=== PATIENT | male | born 1975 | race Caucasian/White ===

== ENCOUNTER 2018-03-05 23:12 | Emergency (ER) | payer OTHER ==
--- NOTE | 2018-03-05 23:24 | PDOC ---
History of Present Illness - General Chief Complaint: Bone Injury Stated Complaint: HAND INJURY Time Seen by Provider: 03/05/18 23:23 History Source: Patient - History of Present Illness Initial Comments: 03/06/18 06:42 42 year old male c/o right hand pain after punching a wall prior to arrival. patient with right 4th and 5th metacarpal tenderness and deformity. tetanus uptodate. Past History - Past Medical History Allergies/Adverse Reactions: Allergies Allergy/AdvReac Type Severity Reaction Status Date / Time Penicillins Allergy Verified 03/05/18 23:19 Home Medications: Ambulatory Orders Aspirin Coated [Ecotrin -] 81 mg PO DAILY #30 tablet.ec 09/25/16 Insulin (Levemir) [Levemir Vial] 20 units SQ BIDI 30 Days ml 09/25/16 Insulin Aspart [Novolog] 6 unit SQ AC #1 ml 09/25/16 Nitroglycerin Sublingual [Nitrostat -] 0.4 mg SL Q5M PRN #0 tab 09/25/16 Ramipril [Altace] 10 mg PO DAILY capsule 09/25/16 Clindamycin [Cleocin -] 300 mg PO TID #21 capsule 03/06/18 Cardiac Disorders: Yes (stent) COPD: No Diabetes: Yes Disorders: Yes (GERD) HTN: Yes - Surgical History Cardiac Surgery: Yes (stent) - Immunization History Immunization Up to Date: Yes - Suicide/Smoking/Psychosocial Hx Smoking Status: Yes Smoking History: Unknown if ever smoked Number of Cigarettes Smoked Daily: 20 Cigars Per Day: 0 'Breaking Loose' booklet given: 09/25/16 Hx Alcohol Use: Yes (1 bottle of vodka per day) Drug/Substance Use Hx: No Review of Systems - Review of Systems Able to Perform ROS?: Yes Is the patient limited Turkmen proficient: No Constitutional: No: Symptoms Reported, See HPI, Chills, Diaphoresis, Fever, Loss of Appetite, Malaise, Night Sweats, Weakness, Weight Stable, Unintentional Wgt. Loss, Unexplained wgt Loss, Other Musculoskeletal: Yes: Other (right hand pain) *Physical Exam - Vital Signs Last Vital Signs Temp Pulse Resp BP Pulse Ox 97.9 F 100 H 18 140/86 99 03/05/18 23:19 03/05/18 23:19 03/05/18 23:19 03/05/18 23:19 03/05/18 23:19 - Physical Exam General Appearance: Yes: Appropriately Dressed Extremity: positive: Normal Capillary Refill, Normal Inspection, Other (+ deformity to right 4,5 metacarpal area, limited ROM , abrasions to hand) ED Treatment Course - RADIOLOGY Radiology Studies Ordered: Category Date Time Status HAND- RIGHT [RAD] Stat Radiology 03/05/18 23:23 Ordered *DC/Admit/Observation/Transfer Diagnosis at time of Disposition: Boxers fracture Qualifiers: Encounter type: initial encounter Fracture type: closed Qualified Code(s): S62.339A - Displaced fracture of neck of unspecified metacarpal bone, initial encounter for closed fracture - Discharge Dispostion Disposition: HOME Condition at time of disposition: Stable - Prescriptions Prescriptions: Clindamycin [Cleocin -] 300 mg PO TID #21 capsule - Referrals Referrals: Jay Byers MD [Primary Care Provider] - Fam Poe MD [Staff Physician] - - Patient Instructions Printed Discharge Instructions: How to Use a Sling Additional Instructions: rest , ICE elevate, keep arm in sling take cephalexin as ordered. follow up with your hand doctor as soon as possible. - Post Discharge Activity Forms/Work/School Notes: Back to Work
[2018-03-05 23:25] VITALS: BP 140/86; PULSE 100; TEMP 97.9; BMI 26.6
--- NOTE | 2018-03-05 23:47 | PDOC ---
*Physical Exam - Vital Signs Last Vital Signs Temp Pulse Resp BP Pulse Ox 97.9 F 100 H 18 140/86 99 03/05/18 23:19 03/05/18 23:19 03/05/18 23:19 03/05/18 23:19 03/05/18 23:19 - Physical Exam Comments: 03/05/18 23:46 R swollen hand Medical Decision Making - Medical Decision Making 03/05/18 23:46 xray shows R 5th metacarpal fx will need splinting 03/06/18 01:02 tetanus UTD small abrasion to hand, will add abx punched a wall splinted will need ortho/hand follow up denies need pain med rx stable for d/c to home *DC/Admit/Observation/Transfer Diagnosis at time of Disposition: Boxers fracture Qualifiers: Encounter type: initial encounter Fracture type: closed Qualified Code(s): S62.339A - Displaced fracture of neck of unspecified metacarpal bone, initial encounter for closed fracture - Discharge Dispostion Disposition: HOME Condition at time of disposition: Stable Admit: No - Prescriptions Prescriptions: Clindamycin [Cleocin -] 300 mg PO TID #21 capsule - Referrals Referrals: Fam Poe MD [Staff Physician] - Jay Byers MD [Primary Care Provider] - - Patient Instructions Printed Discharge Instructions: How to Use a Sling Additional Instructions: rest , ICE elevate, keep arm in sling take cephalexin as ordered. follow up with your hand doctor as soon as possible. - Post Discharge Activity Forms/Work/School Notes: Back to Work
== END 2018-03-06 00:45 | disposition home or self-care (01) ==
LOC: JER 23:12
DX: S62.339A Displaced fracture of neck of unspecified metacarpal bone, initial encounter for closed fracture (principal); W22.09XA Striking against other stationary object, initial encounter; Y93.89 Activity, other specified; Y92.9 Unspecified place or not applicable; F17.210 Nicotine dependence, cigarettes, uncomplicated
CPT/HCPCS: 73130-TC-RT-FY; 99283-25

== ENCOUNTER 2018-05-17 00:49 | Emergency (ER) | payer OTHER ==
[2018-05-17 02:10] VITALS: BP 136/96; PULSE 78; TEMP 98.4; BMI 25.7
--- NOTE | 2018-05-17 02:23 | PDOC ---
*Physical Exam - Vital Signs Last Vital Signs Temp Pulse Resp BP Pulse Ox 98.4 F 78 19 136/96 98 05/17/18 01:00 05/17/18 01:00 05/17/18 01:00 05/17/18 01:00 05/17/18 01:00 Medical Decision Making - Medical Decision Making 05/17/18 02:23 Pt seen by Midlevel Provider under my direct supervision Ancillary studies reviewed I agree with plan as outlined by Midlevel Provider 05/17/18 22:22 *DC/Admit/Observation/Transfer Diagnosis at time of Disposition: Laceration of wrist without complication, Contusion of hand, right - Discharge Dispostion Disposition: HOME Condition at time of disposition: Fair - Referrals Referrals: Jeffery Dang MD [Staff Physician] - - Patient Instructions Additional Instructions: Rest, no strenuous activity or exercise until glue is dissolved or lifted Wash from the neck down only and avoid hot steamy environment until Dermabond is gone No bathing or swimming until Dermabond is dissolved Avoid peeling away as wound will open Dermabond should be resolved within 3-7 days May use Tylenol or Motrin for pain relief apply ice to hand to decrease swelling and control pain Followup with your doctor as needed Return to emergency department for worsening swelling, pain, redness or signs of cellulitis If the wound reopens, may not be reclosed as will be a dirty wound and will need to heal by secondary intention - Post Discharge Activity Forms/Work/School Notes: Back to Work
[2018-05-17] MEDS ORDERED: DIPHTH,PERTUSS(ACELL),TET 0.5 ML DISP.SYRIN IM ONE (02:25)
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
== END 2018-05-17 04:12 | disposition home or self-care (01) ==
LOC: JER 00:49
PROC: 0HQDXZZ Repair Right Lower Arm Skin, External Approach (ICD-10-PCS; principal; 2018-05-17)
PROC: 3E0234Z Introduction of Serum, Toxoid and Vaccine into Muscle, Percutaneous Approach (ICD-10-PCS; 2018-05-17)
DX: S61.511A Laceration without foreign body of right wrist, initial encounter (principal); S60.211A Contusion of right wrist, initial encounter; W25.XXXA Contact with sharp glass, initial encounter; Y93.89 Activity, other specified; Y92.038 Other place in apartment as the place of occurrence of the external cause; Y99.8 Other external cause status; I10 Essential (primary) hypertension; Z98.61 Coronary angioplasty status; E11.9 Type 2 diabetes mellitus without complications; Z79.4 Long term (current) use of insulin; K21.9 Gastro-esophageal reflux disease without esophagitis; F17.210 Nicotine dependence, cigarettes, uncomplicated
CPT/HCPCS: 73130-TC-RT-FY; 90715; 99281-25

== ENCOUNTER 2018-07-10 00:03 | Emergency (ER) | payer OTHER ==
[2018-07-10 00:10] VITALS: BP 114/76; PULSE 94; TEMP 98; BMI 25.0
--- NOTE | 2018-07-10 00:24 | PDOC ---
History of Present Illness - General Chief Complaint: Pain, Acute Stated Complaint: HAND PAIN Time Seen by Provider: 07/10/18 00:06 - History of Present Illness Initial Comments: 07/10/18 00:38 This 43-year-old man with a history of CAD/HTN/DM and past history of boxer's fracture of the right hand presents with injury to the right hand: Patient states that he punched a wall approximately 2 hours prior to presentation. Subsequent to that, he has had pain and swelling in the right hand. No other injuries sustained. Patient had ORIF of 4th and 5th metacarpal fracture of the right hand in 2014 [facility]. PMH: HTN CAD IDDM Medications as noted below Past History - Past Medical History Allergies/Adverse Reactions: Allergies Allergy/AdvReac Type Severity Reaction Status Date / Time Penicillins Allergy Verified 05/17/18 02:10 Home Medications: Ambulatory Orders Aspirin Coated [Ecotrin -] 81 mg PO DAILY #30 tablet.ec 09/25/16 Insulin (Levemir) [Levemir Vial] 20 units SQ BIDI 30 Days ml 09/25/16 Insulin Aspart [Novolog] 6 unit SQ AC #1 ml 09/25/16 Nitroglycerin Sublingual [Nitrostat -] 0.4 mg SL Q5M PRN #0 tab 09/25/16 Ramipril [Altace] 10 mg PO DAILY capsule 09/25/16 Clindamycin [Cleocin -] 300 mg PO TID #21 capsule 03/06/18 Cardiac Disorders: Yes COPD: No DVT: No Diabetes: Yes Disorders: Yes (GERD) HTN: Yes - Surgical History Appendectomy: No Cardiac Surgery: Yes (CATHERIZATION) - Immunization History Immunization Up to Date: Yes - Suicide/Smoking/Psychosocial Hx Smoking Status: Yes Smoking History: Current every day smoker Have you smoked in the past 12 months: Yes Number of Cigarettes Smoked Daily: 20 Cigars Per Day: 0 Information on smoking cessation initiated: Yes 'Breaking Loose' booklet given: 09/25/16 Hx Alcohol Use: Yes Drug/Substance Use Hx: No Substance Use Type: Alcohol Review of Systems - Review of Systems Able to Perform ROS?: Yes Comments:: 12 point review of systems is negative except for what is noted in the history of present illness *Physical Exam - Vital Signs Last Vital Signs Temp Pulse Resp BP Pulse Ox 98 F 94 H 20 114/76 98 07/10/18 00:05 07/10/18 00:05 07/10/18 00:05 07/10/18 00:05 07/10/18 00:05 - Physical Exam Comments: GENERAL: Adult male, AOB, in mild distress secondary to right hand pain HEAD: Normal with no signs of trauma. EYES: PERRLA, EOMI, sclera anicteric, conjunctiva clear. EXTREMITIES: Right upper extremity-moderate edema of right hand with point tenderness over fourth/fifth metacarpal No ecchymosis/ no open wound Remainder of the extremity exam is normal NEUROLOGICAL: Cranial nerves II through XII grossly intact. Normal speech. No focal neurological deficits. MUSCULOSKELETAL: Back non-tender to palpation, no CVA tenderness SKIN: Warm, Dry, normal turgor, no rashes or lesions noted. Progress Note - Progress Note Progress Note: Right hand x-ray performed and interpreted by me: Evidence of old fractures at base of fourth and fifth metacarpal bones. No new fracture/dislocation seen. X -ray image similar to one obtained here on 05/17/18; this was interpreted as negative for new fracture. Melvin wrap applied to right hand. Patient will use Melvin wrap during the day for the next several days. He will also elevate and ice the area as much as possible for the next 48 hours. He has persistent pain/swelling, he should follow-up with Drs. Dang/Heather *DC/Admit/Observation/Transfer Diagnosis at time of Disposition: Contusion of hand, right Qualifiers: Encounter type: initial encounter Qualified Code(s): S60.221A - Contusion of right hand, initial encounter - Discharge Dispostion Disposition: HOME Condition at time of disposition: Stable - Referrals Referrals: Jeffery Dang MD [Staff Physician] - - Patient Instructions Printed Discharge Instructions: Contusion Additional Instructions: elevate/ice to right hand as much as possible over the next 48 hours Melvin wrap to right hand during the day for the next 3 days Follow-up with Dr. Dang/Dr. Romero if you have persistent pain/swelling - Post Discharge Activity
== END 2018-07-10 02:25 | disposition home or self-care (01) ==
LOC: FER 00:03
DX: S60.221A Contusion of right hand, initial encounter (principal); W22.01XA Walked into wall, initial encounter; Y93.89 Activity, other specified; Y92.9 Unspecified place or not applicable; F17.210 Nicotine dependence, cigarettes, uncomplicated; E11.9 Type 2 diabetes mellitus without complications; K21.9 Gastro-esophageal reflux disease without esophagitis; I51.9 Heart disease, unspecified; Z79.4 Long term (current) use of insulin
CPT/HCPCS: 73130-TC-RT-FY; 99281-25

== ENCOUNTER 2019-07-07 21:36 | Emergency (ER) | payer OTHER ==
[2019-07-07 21:50] VITALS: TEMP 98; BMI 26.4
[2019-07-07] MEDS ORDERED: SODIUM CHLORIDE 1,000 ML IV STA (22:03)
[2019-07-07] MEDS ORDERED: ONDANSETRON 4 MG/2 ML VIAL IVPUSH ONE (22:03)
[2019-07-07] MEDS ORDERED: ONDANSETRON 4 MG/2 ML VIAL ONE (22:45)
[2019-07-07] MEDS ORDERED: morphine SULFATE 4 MG/ML VIAL IVPUSH ONE (22:54)
[2019-07-07 22:58] LABS: HEMATOCRIT 42.7 % (35.4-49); MCH 33.9 pg (25.7-33.7); MEAN CELL VOLUME 96.8 fl (80-96); MEAN PLT VOLUME 7.2 fl (7.5-11.1); PLATELET COUNT 157 K/MM3 (134-434); RBC 4.41 M/mm3 (4.00-5.60); RDW 13.8 % (11.9-15.9); WHITE BLOOD COUNT 10.7 K/mm3 (4.0-10.0)
[2019-07-07] MEDS ORDERED: morphine SULFATE 4 MG/ML VIAL ONE (23:18)
[2019-07-07 23:37] LABS: ALBUMIN 4.1 g/dl (3.4-5.0); BILIRUBIN,TOTAL 0.4 mg/dL (0.2-1); BLOOD UREA NITROGEN 17.3 mg/dL (7-18); CALCIUM 9.6 mg/dL (8.5-10.1); CREATININE 0.8 mg/dL (0.55-1.3); POTASSIUM 3.9 mmol/L (3.5-5.1)
[2019-07-08] MEDS ORDERED: KETOROLAC TROMETHAMINE 30 MG/1 ML VIAL IVPUSH ONE (00:04)
[2019-07-08] MEDS ORDERED: traMADol HCL 50 MG TABLET PO ONE (00:04)
[2019-07-08] MEDS ORDERED: LIDOCAINE 5% TOPICAL PATCH TP ONE (00:04)
[2019-07-08] MEDS ORDERED: KETOROLAC TROMETHAMINE 30 MG/1 ML VIAL ONE (00:07)
[2019-07-08] MEDS ORDERED: LIDOCAINE 5% TOPICAL PATCH ONE (00:07)
[2019-07-08] MEDS ORDERED: traMADol HCL 50 MG TABLET ONE (00:17)
[2019-07-08 00:55] LABS: URINE APPEARANCE CLEAR; URINE BILIRUBIN NEGATIVE (NEGATIVE); URINE COLOR YELLOW; URINE GLUCOSE (UA) NEGATIVE (NEGATIVE); URINE KETONE TRACE (NEGATIVE); URINE LEUK ESTERASE NEGATIVE (NEGATIVE); URINE NITRITE NEGATIVE (NEGATIVE); URINE PROTEIN NEGATIVE (NEGATIVE); URINE UROBILINOGEN 0.2 mg/dL (0.2-1.0)
--- NOTE | 2019-07-08 01:04 | PDOC ---
Documentation entered by Erlinda Salgado SCRIBE, acting as scribe for Donna Doll DO. Donna Doll DO: This documentation has been prepared by the Damian tobias Brenda, SCRIBE, under my direction and personally reviewed by me in its entirety. I confirm that the documentation accurately reflects all work , treatment, procedures, and medical decision making performed by me. History of Present Illness - General Chief Complaint: Pain, Acute Stated Complaint: PAIN Time Seen by Provider: 07/07/19 21:57 History Source: Patient Exam Limitations: No Limitations - History of Present Illness Initial Comments: 07/07/19 22:21 The patient is a 44 year old male, with a significant PMH of HTN, diabetes, GERD , spinal stenosis and cardiac catheterization,who presents to the emergency department with 1 day of left sided flank pain radiating to the left groin, accompanied by nausea. The patient denies trauma. Denies chest pain, shortness of breath, headache and dizziness. Denies fever, chills, vomiting, diarrhea, constipation and bowel incontinence. Denies dysuria, frequency, urgency and hematuria. Allergies: Acetaminophen, oxycodone and penicillins. Past surgical history: None reported Social history: Current everyday tobacco use. Denies any illicit drug use. PCP: Jay Byers Past History - Past Medical History Allergies/Adverse Reactions: Allergies Allergy/AdvReac Type Severity Reaction Status Date / Time acetaminophen [From Percocet] Allergy Verified 07/07/19 21:51 oxycodone Allergy Verified 07/07/19 21:51 Penicillins Allergy Verified 05/17/18 02:10 Home Medications: Ambulatory Orders Aspirin Coated [Ecotrin -] 81 mg PO DAILY #30 tablet.ec 09/25/16 Insulin (Levemir) [Levemir Vial] 20 units SQ BIDI 30 Days ml 09/25/16 Insulin Aspart [Novolog] 6 unit SQ AC #1 ml 09/25/16 Nitroglycerin Sublingual [Nitrostat -] 0.4 mg SL Q5M PRN #0 tab 09/25/16 Ramipril [Altace] 10 mg PO DAILY capsule 09/25/16 Clindamycin [Cleocin -] 300 mg PO TID #21 capsule 03/06/18 Lidocaine 5% Patch [Lidoderm Patch -] 1 patch TP DAILY PRN #7 patch 07/08/19 Tramadol HCl 50 mg PO TID PRN #9 tablet MDD 3 07/08/19 Cardiac Disorders: Yes COPD: No DVT: No Diabetes: Yes Disorders: Yes (GERD) HTN: Yes - Surgical History Appendectomy: No Cardiac Surgery: Yes (CATHERIZATION) - Immunization History Immunization Up to Date: Yes - Suicide/Smoking/Psychosocial Hx Smoking Status: Yes Smoking History: Unknown if ever smoked Have you smoked in the past 12 months: No Number of Cigarettes Smoked Daily: 20 Cigars Per Day: 0 Information on smoking cessation initiated: No 'Breaking Loose' booklet given: 07/10/18 Hx Alcohol Use: No Drug/Substance Use Hx: No Substance Use Type: Alcohol Review of Systems - Review of Systems Able to Perform ROS?: Yes Comments:: 07/07/19 22:22 GENERAL/CONSTITUTIONAL: No fever or chills. No weakness. HEAD, EYES, EARS, NOSE AND THROAT: No change in vision. No ear pain or discharge. No sore throat. GASTROINTESTINAL: (+) LLQ pain. (+) Nausea. (+) Left grin pain. No vomiting, diarrhea or constipation. GENITOURINARY: No dysuria, frequency, or change in urination. CARDIOVASCULAR: No chest pain or shortness of breath. RESPIRATORY: No cough, wheezing, or hemoptysis. MUSCULOSKELETAL: (+) Left sided back pain. No joint or muscle swelling. No neck pain. SKIN: No rash NEUROLOGIC: No headache, vertigo, loss of consciousness, or change in strength/ sensation. ENDOCRINE: No increased thirst. No abnormal weight change. HEMATOLOGIC/LYMPHATIC: No anemia, easy bleeding, or history of blood clots. ALLERGIC/IMMUNOLOGIC: No hives or skin allergy. *Physical Exam - Vital Signs Last Vital Signs Temp Pulse Resp BP Pulse Ox 98.0 F 102 H 16 199/116 H 100 07/07/19 21:48 07/07/19 21:48 07/07/19 21:48 07/07/19 21:48 07/07/19 21:48 - Physical Exam Comments: 07/07/19 22:03 GENERAL: Awake, in no acute distress HEAD: No signs of trauma EYES: PERRLA, EOMI, NECK: Normal ROM, supple, no lymphadenopathy, JVD, or masses LUNGS: Breath sounds equal, clear to auscultation bilaterally. No wheezes, and no crackles. Normal work of breathing. HEART: Regular rate and rhythm, normal S1 and S2, no murmurs, rubs or gallops ABDOMEN: Soft, LLQ tenderness, normoactive bowel sounds. No guarding, no rebound. No masses. Non-distended. CHEST WALL: BACK: No midline tenderness., dec ROM due to pain EXTREMITIES: Normal range of motion, no edema. No clubbing or cyanosis. No erythema, or tenderness NEUROLOGICAL: Alert, and oriented x4, Cranial nerves II through XII grossly intact. Normal speech, . DTRs 2/4 bilaterally. SKIN: Warm, Dry, normal turgor, no rashes or lesions noted. 07/08/19 00:51 Heart Score/ECG Review - ECG Intrepretation Comment:: 07/08/19 00:54 EKG shows a normal sinus rhythm at 88 bpm with no acute ST elevations Rhythm strip shows a sinus rhythm at 85-90 bpm ED Treatment Course - LABORATORY CBC & Chemistry Diagram: 07/07/19 22:30 07/07/19 22:30 - ADDITIONAL ORDERS Additional order review: Laboratory Results 07/07/19 22:30 Sodium 140 Potassium 3.9 Chloride 105 Carbon Dioxide 26 Anion Gap 10 BUN 17.3 Creatinine 0.8 Est GFR (CKD-EPI)AfAm 125.92 Est GFR (CKD-EPI)NonAf 108.65 Random Glucose 170 H Calcium 9.6 Total Bilirubin 0.4 AST 10 L ALT 21 Alkaline Phosphatase 59 Total Protein 7.0 Albumin 4.1 07/07/19 22:30 RBC 4.41 MCV 96.8 H MCHC 35.0 RDW 13.8 MPV 7.2 L - RADIOLOGY Radiology Studies Ordered: Category Date Time Status ABDOMEN & PELVIS CT W/O CONTR [CT] Stat CT Scan 07/07/19 22:[address] W/O CONTRAST [CT] Stat CT Scan 07/07/19 22:50 Completed - Medications Given in the ED: ED Medications Discontinued Medications Generic Name Dose Route Start Last Admin Trade Name Freq PRN Reason Stop Dose Admin Sodium Chloride 1,000 mls @ 1,000 mls/hr 07/07/19 22:03 07/07/19 23:23 Normal Saline - IV 07/07/19 23:02 1,000 mls/hr ASDIR STA Administration Ketorolac Tromethamine 30 mg 07/08/19 00:04 07/08/19 00:16 Toradol Injection - IVPUSH 07/08/19 00:05 30 mg ONCE ONE Administration Lidocaine 1 patch 07/08/19 00:04 07/08/19 00:16 Lidoderm Patch - TP 07/08/19 00:05 1 patch ONCE ONE Administration Morphine Sulfate 4 mg 07/07/19 22:54 07/07/19 23:23 Morphine Sulfate IVPUSH 07/07/19 22:55 4 mg ONCE ONE Administration Ondansetron HCl 4 mg 07/07/19 22:03 07/07/19 22:48 Zofran Injection IVPUSH 07/07/19 22:04 4 mg ONCE ONE Administration Tramadol HCl 50 mg 07/08/19 00:04 07/08/19 00:18 Ultram - PO 07/08/19 00:05 50 mg ONCE ONE Administration Medical Decision Making - Medical Decision Making 07/08/19 00:55 44-year-old male with low back pain radiating into the left lower quadrant increased with movement CT scan of the abdomen and pelvis as well as lumbar spine without contrast showed multilevel lumbar disease, likely responsible for patient's symptoms There is no associated bowel or urinary incontinence Deep tendon reflexes are intact There is no fever or reproducible midline tenderness Patient given morphine, Toradol, tramadol and a Lidoderm patch He will follow-up with his orthopedic office for further management *DC/Admit/Observation/Transfer Diagnosis at time of Disposition: Low back pain - Discharge Dispostion Disposition: HOME Condition at time of disposition: Stable Decision to Admit order: No - Prescriptions Prescriptions: Lidocaine 5% Patch [Lidoderm Patch -] 1 patch TP DAILY PRN #7 patch PRN Reason: Pain Tramadol HCl 50 mg PO TID PRN #9 tablet MDD 3 PRN Reason: Pain - Referrals Referrals: Sin Romero MD [Staff Physician] - - Patient Instructions Printed Discharge Instructions: DI for Low Back Pain Additional Instructions: If you develop bowel or urinary incontinence, leg weakness fever or any worsening in your symptoms return to the emergency department immediately as these could be signs of a more significant illness. Otherwise follow-up with orthopedics for further evaluation. - Post Discharge Activity - Attestations Physician Attestion: 07/08/19 01:00 I, Dr Donna Doll, attest that this document has been prepared under my direction and personally reviewed by me in its entirety. I further attest, that it accurately reflects all work, procedures and medical decision making performed by me.
[2019-07-08 01:21] VITALS: BP 152/82; PULSE 70
--- NOTE | 2019-07-08 13:34 | EKG ---
Test Reason : Blood Pressure : / mmHG Vent. Rate : 088 BPM Atrial Rate : 088 BPM P-R Int : 130 ms QRS Dur : 092 ms QT Int : 366 ms P-R-T Axes : 050 070 035 degrees QTc Int : 442 ms NORMAL SINUS RHYTHM NORMAL ECG WHEN COMPARED WITH ECG OF 24-SEP-2016 23:42, NO SIGNIFICANT CHANGE WAS FOUND Confirmed by JANET LY MD ([id number]) on 07/08/2019 1:34:18 PM Referred By: Confirmed By:JANET LY MD
[2019-07-08] MEDS ORDERED: LIDOCAINE PATCH REMOVAL MC SCH (22:00)
== END 2019-07-08 01:23 | disposition home or self-care (01) ==
LOC: JER 21:36
PROC: 3E0337Z Introduction of Electrolytic and Water Balance Substance into Peripheral Vein, Percutaneous Approach (ICD-10-PCS; principal; 2019-07-07)
PROC: 3E033GC Introduction of Other Therapeutic Substance into Peripheral Vein, Percutaneous Approach (ICD-10-PCS; 2019-07-07)
PROC: 3E033NZ Introduction of Analgesics, Hypnotics, Sedatives into Peripheral Vein, Percutaneous Approach (ICD-10-PCS; 2019-07-07)
PROC: 3E0333Z Introduction of Anti-inflammatory into Peripheral Vein, Percutaneous Approach (ICD-10-PCS; 2019-07-07)
DX: M54.5 Low back pain (principal); I25.10 Atherosclerotic heart disease of native coronary artery without angina pectoris; I10 Essential (primary) hypertension; Z98.61 Coronary angioplasty status; E11.9 Type 2 diabetes mellitus without complications; Z79.4 Long term (current) use of insulin
CPT/HCPCS: 36415; 72131-TC; 74176-TC; 80053; 81003; 85027; 93005; 93010; 99283-25; J7030

== ENCOUNTER 2020-01-16 23:17 | Emergency (ER) | payer OTHER ==
[2020-01-16 23:32] VITALS: BMI 27.4
--- NOTE | 2020-01-16 23:46 | PDOC ---
*Physical Exam - Vital Signs Last Vital Signs Temp Pulse Resp BP Pulse Ox 98.5 F 105 H 18 165/94 99 01/16/20 23:25 01/16/20 23:25 01/16/20 23:25 01/16/20 23:25 01/16/20 23:25 Medical Decision Making - Medical Decision Making 01/16/20 23:46 Patient seen by the advanced practice provider under my supervision. Ancillary testing reviewed as necessary. I agree with plan as outlined by the advanced practice provider. Discharge - Discharge Information Problems reviewed: Yes Clinical Impression/Diagnosis: Laceration Closed head injury Qualifiers: Encounter type: initial encounter Qualified Code(s): S09.90XA - Unspecified injury of head, initial encounter Condition: Stable Disposition: HOME - Follow up/Referral - Patient Discharge Instructions Patient Printed Discharge Instructions: DI for Laceration Repair With Dermabond , DI for Closed Head Injury Additional Instructions: You were evaluated today in the ER after your fall. We performed CT scans which were all negative. You may take over the counter tylenol for pain as needed per package instructions. Please follow-up with primary care provider early next week for further evaluation. Return to ER if any fever, chills, altered mental status, or other concerning findings. - Post Discharge Activity Work/Back to School Note: Back to Work
--- NOTE | 2020-01-17 01:07 | PDOC ---
History of Present Illness - General Chief Complaint: Injury Stated Complaint: FALL / INTOX Time Seen by Provider: 01/16/20 23:45 History Source: Patient, Family Exam Limitations: No Limitations - History of Present Illness Initial Comments: 01/17/20 01:05 Patient is a 44-year-old male with history of diabetes, hypertension, fracture right fourth metatarsal complaining of pain to his neck and face since COMFORT FILLER. Patient states that he was going outside to smoke and fell down the steps hitting his face on the concrete. states that he was outside for about 15 minutes. Patient does not think that he had any loss of consciousness. States pain especially to his neck and left face 07/11. Tetanus unknown. PMD: Dr. Gonzalez PMHX: as above PSOCHX: (+) etoh, (+) cig, (-) drug ALL: acetaminophen, oxycodone, PCN GENERAL/CONSTITUTIONAL: [No fever or chills. No weakness. No weight change.] HEAD, EYES, EARS, NOSE AND THROAT: [No change in vision. No ear pain or discharge. No sore throat.] CARDIOVASCULAR: [No chest pain or shortness of breath.] RESPIRATORY: [No cough, wheezing, or hemoptysis.] GASTROINTESTINAL: [No nausea, vomiting, diarrhea or constipation. No rectal bleeding.] GENITOURINARY: [No dysuria, frequency, or change in urination.] MUSCULOSKELETAL: [No joint or muscle swelling or pain. (+) neck pain, (-) back pain.] SKIN AND BREASTS: [No rash or easy bruising.] NEUROLOGIC: [No headache, vertigo, loss of consciousness, or loss of sensation.] PSYCHIATRIC: [No depression or anxiety.] ENDOCRINE: [No increased thirst. No abnormal weight change.] HEMATOLOGIC/LYMPHATIC: [No anemia, easy bleeding, or history of blood clots.] ALLERGIC/IMMUNOLOGIC: [No hives or skin allergy. No latex allergy.] GENERAL: [The patient is awake, alert, and fully oriented, in mild distress, AOB ] HEAD: [Normal with signs of trauma.] EYES: [Pupils equal, round and reactive to light, extraocular movements intact, sclera anicteric, conjunctiva clear.] ENT: [Ears normal, nares patent, oropharynx clear without exudates. Moist mucous membranes.] NECK: [ limited range of motion due to collar, (+) tenderness to the left paraspinal area, without lymphadenopathy, ] LUNGS: [Breath sounds equal, clear to auscultation bilaterally. No wheezes, and no crackles.] HEART: [Regular rate and rhythm, normal S1 and S2 without murmur, rub.] ABDOMEN: [Soft, nontender, normoactive bowel sounds. No guarding, no rebound. No masses.] EXTREMITIES: [Normal range of motion, no edema. No clubbing or cyanosis. No cords, erythema, or tenderness.] NEUROLOGICAL: [Cranial nerves II through XII grossly intact. Cerebellar function intact normal [id number], normal speech, normal gait, no ataxia.] PSYCH: [Normal mood, normal affect.] SKIN: [(+) 1.5 cm irreg shape laceration to the left forehead, 0.5 laceration to the left lid, abrasion to the nasal bridge, and nasolabial fold on the left] Past History - Past Medical History Allergies/Adverse Reactions: Allergies Allergy/AdvReac Type Severity Reaction Status Date / Time acetaminophen [From Percocet] Allergy Verified 01/16/20 23:28 oxycodone Allergy Verified 01/16/20 23:28 Penicillins Allergy Verified 01/16/20 23:28 Home Medications: Ambulatory Orders Aspirin Coated [Ecotrin -] 81 mg PO DAILY #30 tablet.ec 09/25/16 Insulin (Levemir) [Levemir Vial] 20 units SQ BIDI 30 Days ml 09/25/16 Insulin Aspart [Novolog] 6 unit SQ AC #1 ml 09/25/16 Nitroglycerin Sublingual [Nitrostat -] 0.4 mg SL Q5M PRN #0 tab 09/25/16 Ramipril [Altace] 10 mg PO DAILY capsule 09/25/16 Clindamycin [Cleocin -] 300 mg PO TID #21 capsule 03/06/18 Lidocaine 5% Patch [Lidoderm Patch -] 1 patch TP DAILY PRN #7 patch 07/08/19 Tramadol HCl 50 mg PO TID PRN #9 tablet MDD 3 07/08/19 Cardiac Disorders: Yes COPD: No DVT: No Diabetes: Yes Disorders: Yes (GERD) HTN: Yes - Surgical History Appendectomy: No Cardiac Surgery: Yes (CATHERIZATION) - Immunization History Immunization Up to Date: Yes - Psycho Social/Smoking Cessation Hx Smoking Status: Yes Smoking History: Current every day smoker Have you smoked in the past 12 months: No Number of Cigarettes Smoked Daily: 20 Cigars Per Day: 0 Information on smoking cessation initiated: Yes 'Breaking Loose' booklet given: 07/10/18 Hx Alcohol Use: Yes Drug/Substance Use Hx: No Substance Use Type: Alcohol *Physical Exam - Vital Signs Last Vital Signs Temp Pulse Resp BP Pulse Ox 98.5 F 105 H 18 165/94 99 01/16/20 23:25 01/16/20 23:25 01/16/20 23:25 01/16/20 23:25 01/16/20 23:25 ED Treatment Course - RADIOLOGY Radiology Studies Ordered: Category Date Time Status CERVICAL SPINE CT W/O CONTR [CT] Stat CT Scan 01/17/20 01:[address] W/WO CONTRAST [CT] Stat CT Scan 01/17/20 01:[address] WITHOUT CONTRAST [CT] Stat CT Scan 01/17/20 01:01 Ordered Medical Decision Making - Medical Decision Making 01/17/20 01:05 Patient is a 44-year-old male with history of diabetes, hypertension, fracture right fourth metatarsal complaining of pain to his neck and face since COMFORT FILLER. Patient states that he was going outside to smoke and fell down the steps hitting his face on the concrete. states that he was outside for about 15 minutes. Patient does not think that he had any loss of consciousness. States pain especially to his neck and left face 07/11. Tetanus unknown. Patient with mechanical fall with head, facial and neck injury. CT facial bones, CT head, CT cervical spine. Dermabond to lacerations 01/17/20 02:07 Dermabond and strips applied to the laceration on forehead and left eyelid. Bacitracin ointment to abrasions on nasolabial fold. Endorsed to resident to follow CT scan and disposition. Discharge - Discharge Information Problems reviewed: Yes Clinical Impression/Diagnosis: Laceration Closed head injury Qualifiers: Encounter type: initial encounter Qualified Code(s): S09.90XA - Unspecified injury of head, initial encounter Condition: Stable - Follow up/Referral - Patient Discharge Instructions - Post Discharge Activity
[2020-01-17] MEDS ORDERED: TETANUS AND DIPHTHERIA TOXOID 0.5 ML DISP.SYRIN IM ONE (01:25)
--- NOTE | 2020-01-17 01:55 | PDOC ---
*Physical Exam - Vital Signs Last Vital Signs Temp Pulse Resp BP Pulse Ox 98.5 F 105 H 18 165/94 99 01/16/20 23:25 01/16/20 23:25 01/16/20 23:25 01/16/20 23:25 01/16/20 23:25 <Sebastien Vieyra - Last Filed: 01/17/20 03:08> - Vital Signs Last Vital Signs Temp Pulse Resp BP Pulse Ox 98.5 F 105 H 18 165/94 99 01/16/20 23:25 01/16/20 23:25 01/16/20 23:25 01/16/20 23:25 01/16/20 23:25 <Angelika Meza - Last Filed: 01/17/20 04:15> ED Treatment Course - Medications Given in the ED: ED Medications Discontinued Medications Generic Name Dose Route Start Last Admin Trade Name Freq PRN Reason Stop Dose Admin Tetanus/Diphtheria Toxoids Adsorbed 0.5 ml 01/17/20 01:25 01/17/20 02:28 Decavac IM 01/17/20 01:26 Not Given .ONCE ONE <Angelika Meza - Last Filed: 01/17/20 04:15> Medical Decision Making - Medical Decision Making 01/17/20 01:55 Signout taken from PORTILLO Fong. Patient is a 44 yo male w/ pmh of DM and HTN who presents following reported mechanical fall. Patient lacerations closed by DIE DESIGNER APPRENTICE w/ dermabond. Patient tetanus status updated and currently pending CT reads of Head, C-spine, and Face for dispo. 01/17/20 03:08 CTs negative. Patient will f/u outpatient. Discharging to home. <Sebastien Vieyra - Last Filed: 01/17/20 03:08> - Medical Decision Making 01/17/20 02:46 Patient Name: GRETTA BAIN THIS IS A PRELIMINARY REPORT FROM [facility] DATE OF SERVICE: 2020-01-17 01:15:56 IMAGES: [id number] EXAM: HEAD CT WITHOUT CONTRAST HISTORY: Trauma COMPARISON: None. FINDINGS: The ventricular system is midline and nondilated. The sulcal pattern is normal for the patient's age. There is no bleed, mass, extra-axial fluid collection or mass effect. No skull fracture or skull lesion is identified. The mastoid air cells are clear. Bilateral maxillary sinus retention cysts or polyps noted without sinus air-fluid levels. IMPRESSION: No acute pathology. 01/17/20 02:51 Patient Name: GRETTA BAIN THIS IS A PRELIMINARY REPORT FROM [facility] DATE OF SERVICE: 2020-01-17 01:17:08 IMAGES: [id number] EXAM: FACIAL BONES CT W/O CONTRAST HISTORY: Trauma COMPARISON: None. FINDINGS: The intraorbital contents are intact. The sinuses and visualized mastoid air cells are well aerated other than bilateral maxillary sinus retention cysts or polyps. There is no fracture. IMPRESSION: No fracture 01/17/20 02:51 Patient Name: GRETTA BAIN THIS IS A PRELIMINARY REPORT FROM [facility] DATE OF SERVICE: 2020-01-17 01:13:36 IMAGES: [id number] EXAM: CERVICAL SPINE CT W/O CONTR HISTORY: Trauma COMPARISON: None. FINDINGS: There is no fracture, subluxation, prevertebral soft tissue swelling or significant degenerative changes. The lung apices are clear. IMPRESSION: No fracture <Angelika Meza - Last Filed: 01/17/20 04:15> Discharge <Sebastien Vieyra - Last Filed: 01/17/20 03:08> - Discharge Information Problems reviewed: Yes <Angelika Meza - Last Filed: 01/17/20 04:15> - Discharge Information Clinical Impression/Diagnosis: Laceration Closed head injury Qualifiers: Encounter type: initial encounter Qualified Code(s): S09.90XA - Unspecified injury of head, initial encounter Condition: Stable Disposition: HOME - Patient Discharge Instructions Patient Printed Discharge Instructions: DI for Laceration Repair With Dermabond , DI for Closed Head Injury Additional Instructions: You were evaluated today in the ER after your fall. We performed CT scans which were all negative. You may take over the counter tylenol for pain as needed per package instructions. Please follow-up with primary care provider early next week for further evaluation. Return to ER if any fever, chills, altered mental status, or other concerning findings. - Post Discharge Activity Work/Back to School Note: Back to Work
[2020-01-17] MEDS ORDERED: BACITRACIN 15 GM TUBE TOPICAL OINTMENT TP ONE (02:06)
[2020-01-17] MEDS ORDERED: BACITRACIN 0.9 GM PACKET ONE (03:16)
[2020-01-17 03:49] VITALS: BP 135/85; PULSE 90; TEMP 98.4
== END 2020-01-17 03:20 | disposition home or self-care (01) ==
LOC: JER 23:17
PROC: 0HQ1XZZ Repair Face Skin, External Approach (ICD-10-PCS; principal; 2020-01-16)
PROC: 08QPXZZ Repair Left Upper Eyelid, External Approach (ICD-10-PCS; 2020-01-16)
DX: S01.81XA Laceration without foreign body of other part of head, initial encounter (principal); S01.112A Laceration without foreign body of left eyelid and periocular area, initial encounter; W10.8XXA Fall (on) (from) other stairs and steps, initial encounter; Y93.89 Activity, other specified; Y92.038 Other place in apartment as the place of occurrence of the external cause; Y99.8 Other external cause status; I25.10 Atherosclerotic heart disease of native coronary artery without angina pectoris; I10 Essential (primary) hypertension; Z98.61 Coronary angioplasty status; E11.9 Type 2 diabetes mellitus without complications; Z79.4 Long term (current) use of insulin; K21.9 Gastro-esophageal reflux disease without esophagitis; F17.210 Nicotine dependence, cigarettes, uncomplicated
CPT/HCPCS: 70450-TC; 70486-TC; 72125-TC; 99284-25

== ENCOUNTER 2020-06-27 01:25 | Emergency (ER) | payer OTHER ==
--- NOTE | 2020-06-27 01:49 | PDOC ---
History of Present Illness <Saskia Ricketts - Last Filed: 06/27/20 04:03> - General History Source: Patient Exam Limitations: No Limitations - History of Present Illness Initial Comments: 06/27/20 02:18 45yM w PMHx HTN, diabetes, GERD, spinal stenosis and cardiac catheterization presenting w R hand/wrist swelling/pain after punching wall and metal door repeatedly. Still able to move fingers, denies hand numbness, etoh intoxication. <Taco Evans - Last Filed: 06/27/20 04:09> - General Chief Complaint: Injury Stated Complaint: INJURY RIGHT HAND Time Seen by Provider: 06/27/20 01:49 Past History <Saskia Ricketts - Last Filed: 06/27/20 04:03> - Medical History Cardiac Disorders: Yes COPD: No DVT: No Diabetes: Yes Disorders: Yes (GERD) HTN: Yes - Surgical History Appendectomy: No Cardiac Surgery: Yes (CATHERIZATION) - Immunization History Immunization Up to Date: Yes - Psycho-Social/Smoking History Smoking Status: Yes Smoking History: Never smoked Have you smoked in the past 12 months: No Number of Cigarettes Smoked Daily: 20 Cigars Per Day: 0 Information on smoking cessation initiated: No 'Breaking Loose' booklet given: 07/10/18 - Substance Abuse Hx (Audit-C & DAST Scrn) How often the patient has a drink containing alcohol: Monthly or less Number of drinks the patient has on a typical day: 1 or 2 How often the patient has six or more drinks on one occasion: Never Score: In Men: 4 or > Positive; In Women: 3 or > Positive: 1 Screen Result (Pos requires Nsg. Audit-10AR): Negative In the last yr the pt used illegal drug/Rx for NonMed reason: No Score: Yes response is considered Positive: 0 Screen Result (Positive result requires Nsg. DAST-10): Negative <Taco Evans - Last Filed: 06/27/20 04:09> - Medical History Allergies/Adverse Reactions: Allergies Allergy/AdvReac Type Severity Reaction Status Date / Time acetaminophen [From Percocet] Allergy Verified 06/27/20 01:44 oxycodone Allergy Verified 06/27/20 01:44 Penicillins Allergy Verified 06/27/20 01:44 Home Medications: Ambulatory Orders Aspirin Coated [Ecotrin -] 81 mg PO DAILY #30 tablet.ec 09/25/16 Insulin (Levemir) [Levemir Vial] 20 units SQ BIDI 30 Days ml 09/25/16 Insulin Aspart [Novolog] 6 unit SQ AC #1 ml 09/25/16 Nitroglycerin Sublingual [Nitrostat -] 0.4 mg SL Q5M PRN #0 tab 09/25/16 Ramipril [Altace] 10 mg PO DAILY capsule 09/25/16 Clindamycin [Cleocin -] 300 mg PO TID #21 capsule 03/06/18 Lidocaine 5% Patch [Lidoderm Patch -] 1 patch TP DAILY PRN #7 patch 07/08/19 Tramadol HCl 50 mg PO TID PRN #9 tablet MDD 3 07/08/19 Review of Systems - Review of Systems Constitutional: No: Chills, Fever HEENTM: No: Eye Pain, Ear Discharge Respiratory: No: Cough, Shortness of Breath Cardiac (ROS): No: Chest Pain, Lightheadedness ABD/GI: No: Nausea, Vomiting : No: Burning, Dysuria Musculoskeletal: Yes: Joint Pain. No: Back Pain Integumentary: No: Bruising, Dryness Neurological: No: Headache, Seizure Psychiatric: No: Anxiety, Depression Endocrine: No: Intolerance to Cold, Intolerance to Heat Hematologic/Lymphatic: No: Anemia, Blood Clots <Taco Evans - Last Filed: 06/27/20 04:09> *Physical Exam - Vital Signs Last Vital Signs Temp Pulse Resp BP Pulse Ox 98.7 F 94 H 18 118/81 98 06/27/20 01:41 06/27/20 01:41 06/27/20 01:41 06/27/20 01:41 06/27/20 01:41 <Saskia Ricketts - Last Filed: 06/27/20 04:03> - Vital Signs Last Vital Signs Temp Pulse Resp BP Pulse Ox 98.7 F 94 H 18 118/81 98 06/27/20 01:41 06/27/20 01:41 06/27/20 01:41 06/27/20 01:41 06/27/20 01:41 - Physical Exam General Appearance: Yes: Nourished, Appropriately Dressed, Mild Distress HEENT: positive: EOMI, YAHAIRA, Normal Voice, Hearing Grossly Normal. negative: Scleral Icterus (R), Scleral Icterus (L) Respiratory/Chest: positive: Lungs Clear, Normal Breath Sounds. negative: Chest Tender, Respiratory Distress Cardiovascular: positive: Regular Rhythm, Regular Rate, S1, S2. negative: Edema, Murmur Comments:: 2+ radial pulses anita Extremity: positive: Other (R hand wrist/dorsal hand swelling. Mild thenar eminence, 3rd-5th phalangeal, carpal tenderness. Intact thumbs up, ok sign, finger-5th digit, lumbrical strength. Intact sensation all distal dorsal/palmar digits. Moving all digits spontaneously. Small abrasions) Integumentary: positive: Warm Neurologic: positive: Fully Oriented, Alert, Normal Mood/Affect, Normal Response, Responsive, Other (voice not slurred). negative: Numbness, Confused, Disoriented <Taco Evans - Last Filed: 06/27/20 04:09> Medical Decision Making - Medical Decision Making 06/27/20 02:38 R hand/wrist XR --- 45yM w PMHx HTN, diabetes, GERD, spinal stenosis and cardiac catheterization presenting w R hand/wrist swelling/pain after punching wall and metal door repeatedly. Neurovascular intact Pt refused pain meds Didnt want to wait for final XR read. Told to f/u w ortho, left AMA <Taco Evans - Last Filed: 06/27/20 04:09> Discharge - Discharge Information Problems reviewed: Yes - Admission No <Saskia Ricketts - Last Filed: 06/27/20 04:03> - Discharge Information Problems reviewed: Yes - Admission No <Taco Evans - Last Filed: 06/27/20 04:09> - Discharge Information Clinical Impression/Diagnosis: Hand pain Qualifiers: Laterality: right Qualified Code(s): M79.641 - Pain in right hand Condition: Good Disposition: AGAINST MEDICAL ADVICE - Follow up/Referral Referrals: Hussein Marroquin DO [Staff Physician] - - Patient Discharge Instructions Additional Instructions: You were seen in the ER for hand pain. Please follow-up with the orthopedic in 1-2 days. You did not wish to stay for the results of your x-ray and signed out against medical advice. Please return if you have worsening pain, numbness, or change in color.
[2020-06-27 01:50] VITALS: BP 118/81; PULSE 94; TEMP 98.7; BMI 27.7
--- NOTE | 2020-06-27 02:31 | PDOC ---
Attending Attestation - Resident Resident Name: Taco Evans - ED Attending Attestation I have performed the following: I have examined & evaluated the patient, The case was reviewed & discussed with the resident, I agree w/resident's findings & plan, Exceptions are as noted - HPI HPI: 45 yo M history HTN, DM, GERD, spinal stenosis presents with R hand and wrist pain with swelling after repeatedly punching a metal door. He is able to move his fingers. Denies weakness, numbness. He states he has a prior boxer fracture to the same hand, unsure which bone, but thought it was the 4th metacarpal. - Physicial Exam PE: GENERAL: Awake, alert, and fully oriented, in no acute distress HEAD: No signs of trauma EYES: PERRLA, EOMI, sclera anicteric, conjunctiva clear EXTREMITIES: R hand with deformity over the 4th and 5th metacarpals, distal portion. No tenderness to anatomic snuffbox. No pain on axial load. Remainder of extremities with normal range of motion, no edema. No clubbing or cyanosis. No cords, erythema, or tenderness NEUROLOGICAL: Cranial nerves II through XII grossly intact. Normal speech, normal gait. Motor and sensation intact SKIN: Warm, dry, normal turgor, no rashes or lesions noted. - Medical Decision Making Pt is reliable historian, no signs of fight bite. XR obtained to r/o acute fx. Of note he has prior history of hand fx in the past, will transmit XR to imaging online producer. Discharge - Discharge Information Problems reviewed: Yes Clinical Impression/Diagnosis: Hand pain Qualifiers: Laterality: right Qualified Code(s): M79.641 - Pain in right hand Condition: Stable Disposition: AGAINST MEDICAL ADVICE - Follow up/Referral Referrals: Hussein Marroquin DO [Staff Physician] - - Patient Discharge Instructions Additional Instructions: You were seen in the ER for hand pain. Please follow-up with the orthopedic in 1-2 days. You did not wish to stay for the results of your x-ray and signed out against medical advice. Please return if you have worsening pain, numbness, or change in color. - Post Discharge Activity
== END 2020-06-27 04:06 | disposition left against medical advice (07) ==
LOC: JER 01:25
DX: M79.641 Pain in right hand (principal)
CPT/HCPCS: 73110-TC-RT-FY; 73130-TC-RT-FY; 99283-25

== ENCOUNTER 2020-10-19 22:51 | Emergency (ER) | payer OTHER ==
[2020-10-19 23:02] VITALS: BMI 27.7
[2020-10-20] MEDS ORDERED: DIPHTH,PERTUSS(ACELL),TET 0.5 ML DISP.SYRIN IM ONE (00:34)
[2020-10-20] MEDS ORDERED: TETANUS AND DIPHTHERIA TOXOID 0.5 ML DISP.SYRIN IM ONE (01:39)
[2020-10-20 06:41] VITALS: BP 132/83; PULSE 105; TEMP 98.8
== END 2020-10-20 05:04 | disposition home or self-care (01) ==
LOC: JER 22:51
PROC: 0HQFXZZ Repair Right Hand Skin, External Approach (ICD-10-PCS; principal; 2020-10-19)
PROC: 2W3CX1Z Immobilization of Right Lower Arm using Splint (ICD-10-PCS; 2020-10-19)
DX: S62.339A Displaced fracture of neck of unspecified metacarpal bone, initial encounter for closed fracture (principal)
CPT/HCPCS: 73130-TC-RT-FY; 99283-25

== ENCOUNTER 2022-10-23 18:08 | Emergency (ER) | payer OTHER ==
[2022-10-23 18:29] VITALS: BP 172/114; PULSE 89; RESP 18; TEMP 98.7; BMI 27.7
== END 2022-10-23 20:35 | disposition left against medical advice (07) ==
LOC: JER 18:08
DX: R05.1 Acute cough (principal); R07.9 Chest pain, unspecified
CPT/HCPCS: 93005; 93010; 99283-25

== ENCOUNTER 2022-11-14 04:04 | Day surgery (SDC) | payer OTHER ==
[2022-11-12 13:06] VITALS: BMI 27.7
[~2022-11-14 04:04] MED LIST: BUPIVACAINE HCL/PF 0.5% (5MG/ML) 10 ML VIAL IJ ONE
[2022-11-14] MEDS ORDERED: BUPIVACAINE HCL/PF 0.5% (5MG/ML) 10 ML VIAL ONE (07:21)
[2022-11-14] MEDS ORDERED: MIDAZOLAM HCL 2 MG/2 ML SINGLE DOSE VIAL ONE (07:49)
[2022-11-14] MEDS ORDERED: FENTANYL CITRATE/PF 50 MCG/ML VIAL ONE ×3 (07:49→09:22)
[2022-11-14] MEDS ORDERED: ceFAZolin SODIUM 1 GM VIAL IVPB ONE (08:25)
[2022-11-14] MEDS ORDERED: PROPOFOL 20 ML ONE (08:32)
[2022-11-14] MEDS ORDERED: BUPIVACAINE HCL/PF 0.5% (5MG/ML) 10 ML VIAL IJ ONE ×2 (08:46→08:57)
[2022-11-14] MEDS ORDERED: oxyCODONE HCL 5 MG TABLET PO PRN (09:13)
[2022-11-14] MEDS ORDERED: FENTANYL CITRATE/PF 50 MCG/ML VIAL IVPUSH PRN (09:13)
[2022-11-14] MEDS ORDERED: ONDANSETRON 4 MG/2 ML VIAL IVPUSH PRN (09:13)
[2022-11-14 10:24] VITALS: RESP 20
[2022-11-14] MEDS ORDERED: PROPOFOL 40 ML ONE (11:05)
[2022-11-14 11:41] VITALS: BP 109/66; PULSE 88; TEMP 97.9
== END 2022-11-14 11:30 | disposition home or self-care (01) ==
LOC: JASU-SURG 04:04
PROVIDERS: ATTEND Orthopaedic Surgery
PROC: 0SBC4ZZ Excision of Right Knee Joint, Percutaneous Endoscopic Approach (ICD-10-PCS; principal; 2022-11-14 08:00)
DX: S83.241A Other tear of medial meniscus, current injury, right knee, initial encounter (principal); M17.11 Unilateral primary osteoarthritis, right knee; X58.XXXA Exposure to other specified factors, initial encounter; Y93.9 Activity, unspecified; Y92.9 Unspecified place or not applicable; Y99.9 Unspecified external cause status
CPT/HCPCS: 94760

== ENCOUNTER 2024-07-06 00:49 | Emergency (ER) | payer OTHER ==
[2024-07-06 01:14] VITALS: BP 131/87; PULSE 90; RESP 18; TEMP 98.2; BMI 27.4
[2024-07-06 01:55] LABS: BASO % 0.3 % (0-2.0); EOS % 3.5 % (0-4.5); HEMATOCRIT 49.5 % (35.4-49); HEMOGLOBIN 17.7 GM/dL (11.7-16.9); LYMPH % 42.6 % (8-40); MCH 34.7 pg (25.7-33.7); MCHC 35.8 g/dl (32.0-35.9); MEAN CELL VOLUME 96.9 fl (80-96); MEAN PLT VOLUME 6.8 fl (7.5-11.1); NEUT % 46.6 % (42.8-82.8); PLATELET COUNT 161 10^3/uL (134-434); RBC 5.11 M/mm3 (4.00-5.60); RDW 14.4 % (11.9-15.9); WHITE BLOOD COUNT 8.7 K/mm3 (4.0-10.0)
[2024-07-06] MEDS: SODIUM CHLORIDE 0.9% 500 ML INFUS.BAG IV ONE ×2 (02:16→02:55)
[2024-07-06 03:30] LABS: POTASSIUM 3.5 mmol/L (3.5-5.1)
[2024-07-06 03:32] LABS: CALCIUM 8.8 mg/dL (8.5-10.1)
[2024-07-06 03:33] LABS: ALBUMIN 4.3 g/dl (3.4-5.0); BLOOD UREA NITROGEN 13.5 mg/dL (7-18)
[2024-07-06 03:36] LABS: CREATININE 0.9 mg/dL (0.55-1.3)
[2024-07-06 03:37] LABS: BILIRUBIN,TOTAL 0.4 mg/dL (0.2-1); TOT PROT 7.5 g/dl (6.4-8.2)
[2024-07-06 03:41] LABS: N-TERMINAL BNP 19.7 pg/ml (5-125)
== END 2024-07-06 04:52 | disposition home or self-care (01) ==
LOC: JER 00:49
DX: R55 Syncope and collapse (principal); R42 Dizziness and giddiness; R07.9 Chest pain, unspecified; E11.649 Type 2 diabetes mellitus with hypoglycemia without coma; Z20.822 Contact with and (suspected) exposure to COVID-19
CPT/HCPCS: 0241U-QW; 36415; 71045-TC-FY; 80053; 82962; 83880; 84484; 85025; 93005; 93010; 99285-25

== ENCOUNTER 2024-12-03 01:24 | Emergency (ER) | payer OTHER ==
[2024-12-03 01:42] VITALS: PULSE 102; RESP 20; TEMP 98.6; BMI 29.0
[2024-12-03 02:41] VITALS: BP 138/90
== END 2024-12-03 02:41 | disposition home or self-care (01) ==
LOC: JER 01:24
DX: S60.221A Contusion of right hand, initial encounter (principal); W22.09XA Striking against other stationary object, initial encounter
CPT/HCPCS: 73110-TC-RT-FY; 73130-TC-RT-FY; 99283-25

== ENCOUNTER 2025-07-04 00:23 | Emergency (ER) | payer OTHER ==
[2025-07-04 00:29] VITALS: BP 137/96; TEMP 98.1; BMI 27.1
[2025-07-04] MEDS ORDERED: ACETAMINOPHEN 325 MG TABLET (FP) ONE (01:24)
[2025-07-04] MEDS ORDERED: LIDOCAINE 5% TOPICAL PATCH ONE (01:24)
[2025-07-04] MEDS: LIDOCAINE 5% TOPICAL PATCH TP ONE (01:30)
[2025-07-04] MEDS: ACETAMINOPHEN 325 MG TABLET (FP) PO ONE (01:31)
[2025-07-04] MEDS ORDERED: KETOROLAC TROMETHAMINE 30 MG/1 ML VIAL ONE (02:28)
[2025-07-04] MEDS: KETOROLAC TROMETHAMINE 30 MG/1 ML VIAL IM ONE (02:36)
[2025-07-04 02:38] VITALS: PULSE 100; RESP 14
[2025-07-04] MEDS ORDERED: LIDOCAINE PATCH REMOVAL MC SCH (22:00)
== END 2025-07-04 02:42 | disposition home or self-care (01) ==
LOC: JER 00:23
PROC: 3E0233Z Introduction of Anti-inflammatory into Muscle, Percutaneous Approach (ICD-10-PCS; principal; 2025-07-04)
DX: S22.32XA Fracture of one rib, left side, initial encounter for closed fracture (principal); R00.0 Tachycardia, unspecified; V93.88XA Other injury due to other accident on board other unpowered watercraft, initial encounter; Y93.16 Activity, rowing, canoeing, kayaking, rafting and tubing
CPT/HCPCS: 71046-TC-FY; 71101-TC-LT-FY; 93005; 93010; 99284-25